=== PATIENT | male | born 1990 | race Caucasian/White ===

== ENCOUNTER 2018-01-15 11:44 | Emergency (ER) | payer SELFPAY ==
[2018-01-15 11:59] VITALS: BP 131/78
--- NOTE | 2018-01-15 12:16 | ER Document Report ---
HPI - HPI Patient complains to provider of: toothache Onset: Last week Onset/Duration: Gradual Pain Level: 1 Context: 27 you male c/o toothache causing right side headache. no fever or facial swelling Associated Symptoms: None Exacerbated by: Denies Relieved by: Denies - ROS ROS below otherwise negative: Yes Systems Reviewed and Negative: Yes All other systems reviewed and negative Past Medical History - General Information source: Patient - Social History Smoking Status: Current Every Day Smoker Frequency of alcohol use: None Drug Abuse: None Lives with: Family Family History: Reviewed & Not Pertinent Pulmonary Medical History: Reports: Hx Asthma Surgical Hx: Negative - Immunizations Hx Diphtheria, Pertussis, Tetanus Vaccination: Yes Vertical Provider Document - CONSTITUTIONAL Agree With Documented VS: Yes Exam Limitations: No Limitations General Appearance: No Apparent Distress - INFECTION CONTROL TRAVEL OUTSIDE OF THE [place] IN LAST 30 DAYS: No - HEENT HEENT: Normocephalic Notes: retracted inflamed gingiva with extensive jose. some decay in fillings lower right. no abscess - NECK Neck: Supple. negative: Lymphadenopathy-Left, Lymphadenopathy-Right - NEURO Level of Consciousness: Awake - DERM Integumentary: No Rash Course - Vital Signs Vital signs: Temp Pulse Resp BP Pulse Ox 98.2 F 80 14 131/78 H 97 01/15/18 11:58 01/15/18 11:58 01/15/18 11:58 01/15/18 11:58 01/15/18 11:58 Discharge - Discharge Clinical Impression: Gingivitis, Tooth decay and pain Condition: Good Disposition: HOME, SELF-CARE Instructions: Acetaminophen, Dentist, Ibuprofen (General) ([facility]), Penicillin V K ([facility]), Toothache ([facility]), Topical Lidocaine ([facility]) Additional Instructions: Topical lidocaine to numb the area See the dentist Motrin and Tylenol for pain Penicillin for possible dental infection Prescriptions: Ibuprofen [Motrin 800 mg Tablet] 800 mg PO Q8HP PRN #30 tablet PRN Reason: Penicillin V Potassium [Penicillin Vk 500 mg Tablet] 500 mg PO QID #40 tablet Forms: Return to Work Referrals: LOCALMD,NO [NO LOCAL MD] - Follow up as needed
[2018-01-15] MEDS ORDERED: LIDOCAINE 2% VISCOUS SOLN 20 ML UDCUP PO ONE (12:38)
[2018-01-15] MEDS ORDERED: IBUPROFEN 800 MG TABLET PO ONE (12:38)
[2018-01-15] MEDS ORDERED: ACETAMINOPHEN 325 MG TABLET PO ONE (12:38)
[2018-01-15] MEDS ORDERED: PENICILLIN V POTASSIUM 500 MG TABLET PO ONE (12:45)
== END 2018-01-15 13:05 | disposition home or self-care (01) ==
LOC: ER 11:44
DX: K05.10 Chronic gingivitis, plaque induced (principal); K02.9 Dental caries, unspecified; K08.89 Other specified disorders of teeth and supporting structures; R51 Headache; F17.200 Nicotine dependence, unspecified, uncomplicated; J45.909 Unspecified asthma, uncomplicated
CPT/HCPCS: 99282; J3490

== ENCOUNTER 2018-05-24 08:15 | Emergency (ER) | payer SELFPAY ==
[2018-05-24 08:33] VITALS: BP 123/73
[2018-05-24] MEDS ORDERED: IBUPROFEN 600 MG TABLET PO ONE (09:17)
--- NOTE | 2018-05-24 09:26 | ER Document Report ---
HPI - HPI Pain Level: 3 Notes: Patient is a 28-year-old male with no significant past medical history who presents to the ED complaining of right shoulder/clavicular pain status post injury when he was wrestling around with his friends yesterday. Patient states that since then he has had pain with movement of the shoulder but will radiate up towards his right neck and into his anterior superior chest. He has not noticed any bruising or swelling. No other concerns or complaints. Denies any headache, fever, head injury, changes in vision/speech/mentation/hearing, URI, sore throat, chest pain, palpitations, syncope, cough, shortness of breath, wheeze, dyspnea, abdominal pain, nausea/vomiting/diarrhea, urinary retention, dysuria, hematuria, loss of control of bowel or bladder, numbness/tingling, saddle anesthesia, muscle paralysis, or rash. - ROS Systems Reviewed and Negative: Yes All other systems reviewed and negative - CONSTITUTIONAL Constitutional: DENIES: Fever, Chills - MUSCULOSKELETAL Musculoskeletal: REPORTS: Extremity pain - R shoulder pain Past Medical History - Social History Smoking Status: Current Every Day Smoker Frequency of alcohol use: Occasional Family History: Reviewed & Not Pertinent Patient has suicidal ideation: No Patient has homicidal ideation: No Pulmonary Medical History: Reports: Hx Asthma Renal/ Medical History: Denies: Hx Peritoneal Dialysis - Immunizations Hx Diphtheria, Pertussis, Tetanus Vaccination: Yes Vertical Provider Document - CONSTITUTIONAL Agree With Documented VS: Yes Notes: PHYSICAL EXAMINATION: GENERAL: Well-appearing, well-nourished and in no acute distress. NECK: Normal range of motion, supple without lymphadenopathy. Non-tender. Spurling negative. No rigidity/meningismus. LUNGS: Breath sounds clear to auscultation bilaterally and equal. No wheezes rales or rhonchi. HEART: Regular rate and rhythm without murmurs, rubs, gallops. Musculoskeletal: Rt shoulder: FROM to passive. LROM to active due to pain. Strength 4+/5 due to pain. Neg speed test. No crepitus. No erythema or warmth. No deformity or ecchymosis. RC intact 4+/5 strength, but could no assess empty can. + tenderness to the clavicle. + soft tissue tenderness to the rt trap mm. No other bony tenderness. N/V intact distal. Extremities: No cyanosis, clubbing, or edema b/l. Peripheral pulses 2+. Capillary refill less than 3 seconds. NEUROLOGICAL: Normal speech, normal gait. Normal sensory, motor exams PSYCH: Normal mood, normal affect. SKIN: Warm, Dry, normal turgor, no rashes or lesions noted. - INFECTION CONTROL TRAVEL OUTSIDE OF THE [place] IN LAST 30 DAYS: No Course - Re-evaluation Re-evalutation: 05/24/18 010:14 Patient is an afebrile, well-hydrated, 28-year-old male who presents to the ED with Rt shoulder/clavicular pain which I suspect to be a sprain versus strain. Vitals are acceptable without any significant tachycardia, tachypnea, or hypoxia. PE is otherwise unremarkable for any neurovascular compromise, obvious tendon/ligament rupture, obvious fracture/dislocation, septic joint. X- ray was unremarkable for any acute pathology. Sling provided today. Pt given motrin. Patient is nontoxic-appearing. No other labs or imaging warranted at this time based on H&P. Conservative measures otherwise for symptoms. Recheck with your PCM in 3-5 days. Consider consult orthopedics. Return to the ED with any worsening/concerning symptoms otherwise as reviewed in discharge. Patient is in agreement. - Vital Signs Vital signs: Temp Pulse Resp BP Pulse Ox 98.3 F 77 16 123/73 98 05/24/18 08:30 05/24/18 08:30 05/24/18 08:30 05/24/18 08:30 05/24/18 08:30 Discharge - Discharge Clinical Impression: Right shoulder pain Qualifiers: Chronicity: acute Qualified Code(s): M25.511 - Pain in right shoulder Condition: Stable Disposition: HOME, SELF-CARE Instructions: Exercise Program for the Shoulder ([facility]), Shoulder Injury ([facility]) Additional Instructions: Rest, Ice, Compression, Elevation Use sling as directed Tylenol/ibuprofen as needed Light stretches daily Strength exercises as able Moist heat and massage may help F/u with your PCP in 3-5 days for a recheck Consider consult(s) with Orthopedics/physical therapy for ongoing/worsening symptoms Return to the ED with any worsening symptoms and/or development of fever, headache, chest pain, palpitations, syncope, shortness of breath, trouble breathing, abdominal pain, n/v/d, muscle weakness/paralysis, numbness/tingling, swelling, redness, or other worsening symptoms that are concerning to you. Prescriptions: Naproxen 500 mg PO BID PRN #20 tablet PRN Reason: Forms: Smoking Cessation Education, Return to Work Referrals: [facility] [Provider Group] - Follow up as needed
--- NOTE | 2018-05-24 10:06 | RADIOLOGY REPORT (SQ) ---
EXAM DESCRIPTION: CLAVICLE RIGHT COMPLETED DATE/TIME: 05/24/2018 9:57 am REASON FOR STUDY: pain s/p injury COMPARISON: None. NUMBER OF VIEWS: Two views. TECHNIQUE: Frontal and angled images were acquired of the right clavicle. LIMITATIONS: None. FINDINGS: MINERALIZATION: Normal. BONES: No acute fracture or dislocation. No worrisome bone lesions. SOFT TISSUES: No obvious swelling or foreign body. OTHER: No other significant finding. IMPRESSION: NEGATIVE STUDY OF THE RIGHT CLAVICLE. NO RADIOGRAPHIC EVIDENCE OF ACUTE INJURY. TECHNICAL DOCUMENTATION: JOB ID: [id number] [employer]- All Rights Reserved Reading location - IP/workstation name: [email or web address] [id number]
== END 2018-05-24 10:44 | disposition home or self-care (01) ==
LOC: ER 08:15
DX: M25.511 Pain in right shoulder (principal); F17.200 Nicotine dependence, unspecified, uncomplicated
CPT/HCPCS: 99283